=== PATIENT | male | born 1985 | race Caucasian/White ===

== ENCOUNTER 2020-08-01 23:22 | Emergency (ER) | payer MEDICAID ==
[~2020-08-01] VITALS: Ht 170.2 cm; Wt 90.0 kg
[2020-08-02] MEDS ORDERED: SODIUM CHLORIDE 0.9% 1,000 ML IV ONE (00:45)
[2020-08-02] MEDS ORDERED: LORAZEPAM 2MG/ML CPJ IV ONE (01:00)
[2020-08-02 01:05] LABS: HEMATOCRIT. 40.2 % (42.0-52.0); HEMOGLOBIN. 14.1 g/dL (14.0-18.0); MEAN CORPUSCULAR HEMOGLOBIN 31.5 pg (28.0-32.0); MEAN CORPUSCULAR VOLUME 89.6 fL (80.0-94.0); MEAN PLATELET VOLUME 8.2 fl (7.4-10.4); PLATELET 87 x1000/uL (130-400); RED BLOOD CELL COUNT 4.48 mill/uL (4.7-6.1); RED CELL DISTRIBUTION WIDTH 15.8 % (11.6-14.6)
[2020-08-02 01:09] LABS: CHLORIDE 98 mEq/L (98-107)
[2020-08-02 01:13] LABS: ETHANOL BLOOD < 10 mg/dL
[2020-08-02] MEDS ORDERED: POTASSIUM CHLORIDE 20MEQ TABLET SR PO ONE (01:30)
[2020-08-02 01:45] LABS: PLATELET ESTIMATE DECREASED
[2020-08-02 04:12] VITALS: BP 121/60
== END 2020-08-02 04:13 | disposition home or self-care (01) ==
LOC: ER 23:22
DX: R55 Syncope and collapse (principal); R53.1 Weakness; F10.10 Alcohol abuse, uncomplicated; Y90.0 Blood alcohol level of less than 20 mg/100 ml; E87.6 Hypokalemia; R74.01 Elevation of levels of liver transaminase levels; I10 Essential (primary) hypertension; F17.200 Nicotine dependence, unspecified, uncomplicated
CPT/HCPCS: 36415; 70450; 71045; 80053; 80320; 83880; 84484; 85025; 93005; 96374; 99285; J2060; J7030; G0480

== ENCOUNTER 2020-10-09 13:33 | Emergency (ER) | payer MEDICAID ==
[~2020-10-09] VITALS: Ht 180.3 cm; Wt 140.9 kg
[2020-10-09] MEDS ORDERED: FAMOTIDINE 20MG/2ML VIAL IV STA (14:25)
[2020-10-09] MEDS ORDERED: MORPHINE SULFATE 4 MG/ML CPJ (NOT FOR IM USE) IV STA (14:25)
[2020-10-09] MEDS ORDERED: ONDANSETRON HCL 4MG/2ML INJ IV STA (14:25)
[2020-10-09] MEDS ORDERED: SODIUM CHLORIDE 0.9% 1,000 ML IV ONE (14:30)
[2020-10-09 15:00] LABS: HEMATOCRIT. 49.9 % (42.0-52.0); HEMOGLOBIN. 17.6 g/dL (14.0-18.0); MEAN CORPUSCULAR HEMOGLOBIN 33.4 pg (28.0-32.0); MEAN CORPUSCULAR VOLUME 94.9 fL (80.0-94.0); MEAN PLATELET VOLUME 7.2 fl (7.4-10.4); PLATELET 284 x1000/uL (130-400); RED BLOOD CELL COUNT 5.26 mill/uL (4.7-6.1); RED CELL DISTRIBUTION WIDTH 15.4 % (11.6-14.6)
[2020-10-09 15:09] LABS: CHLORIDE 92 mEq/L (98-107)
[2020-10-09 15:13] LABS: ETHANOL BLOOD 288 mg/dL
[2020-10-09] MEDS ORDERED: POTASSIUM CHLORIDE 20MEQ TABLET SR PO ONE (15:45)
[2020-10-09 16:44] LABS: PLATELET ESTIMATE NORMAL
[2020-10-09 20:00] VITALS: BP 134/78
== END 2020-10-09 20:30 | disposition home or self-care (01) ==
LOC: ER 13:33
DX: F10.229 Alcohol dependence with intoxication, unspecified (principal); K85.90 Acute pancreatitis without necrosis or infection, unspecified; E87.6 Hypokalemia; R74.01 Elevation of levels of liver transaminase levels; I10 Essential (primary) hypertension; E66.9 Obesity, unspecified; Y90.8 Blood alcohol level of 240 mg/100 ml or more; Z68.42 Body mass index [BMI] 45.0-49.9, adult
CPT/HCPCS: 36415; 71045; 74176; 80053; 80320; 83605; 83690; 84145; 85025; 87040; 87086; 96361; 96374; 96375; 99285; J2270; J2405; J3490; J7030; G0480

== ENCOUNTER 2021-05-18 12:39 | Emergency (ER) | payer MEDICAID, OTHER ==
[~2021-05-18] VITALS: Ht 175.3 cm; Wt 120.0 kg
[2021-05-18] MEDS ORDERED: BALANCED SALT IRRIG SOLN 15ML IR ONE (15:15)
[2021-05-18] MEDS ORDERED: FLUORESCEIN SODIUM 1MG/STRIP LEFTEYE ONE (15:15)
[2021-05-18] MEDS ORDERED: TETRACAINE 0.5% OPHTH DROPS 4ML LEFTEYE ONE (15:15)
[2021-05-18] MEDS ORDERED: IBUPROFEN 600MG TABLET PO STA ×2 (15:58→16:55)
[2021-05-18] MEDS ORDERED: HYDROCODONE/ACETAMINOPHEN 5/325MG TABLET PO STA (18:05)
[2021-05-18] MEDS ORDERED: AMOXICILLIN/POTASSIUM CLAVULANATE 875/125MG TAB PO NR (18:15)
[2021-05-18] MEDS ORDERED: AMOX-424 PO (18:18)
[2021-05-18] MEDS ORDERED: HYDR-4001 PO (18:18)
[2021-05-18 18:45] VITALS: BP 148/74
== END 2021-05-18 18:49 | disposition home or self-care (01) ==
LOC: ER 12:39
DX: S02.32XA Fracture of orbital floor, left side, initial encounter for closed fracture (principal); S02.40DA Maxillary fracture, left side, initial encounter for closed fracture; Y04.0XXA Assault by unarmed brawl or fight, initial encounter; Y93.89 Activity, other specified; Y92.89 Other specified places as the place of occurrence of the external cause; Y99.8 Other external cause status
CPT/HCPCS: 70486; 99284